=== PATIENT | male | born 1950 | race Caucasian/White ===

== ENCOUNTER 2017-10-17 13:45 | Inpatient (IN) | payer MEDICARE, MEDICAID, OTHER ==
[2017-10-17] MEDS: ONDANSETRON 4 MG INJ IV (17:31)
[2017-10-17] MEDS: morphine 4 MG/ML VIAL IV (17:31)
[2017-10-17] MEDS: METHOCARBAMOL 750 MG TAB PO (17:39)
[2017-10-17 17:41] LABS: ADD MAN DIFF? NO
[2017-10-17 17:43] LABS: BASOPHIL # 0.1 10^3/ul (0.0-0.1); BASOPHILS % 0.6 % (0.0-2.0); EOSINOPHILS # 0.1 10^3/ul (0.0-0.5); EOSINOPHILS % 1.4 % (0.0-7.0); HEMATOCRIT 30.3 % (42.0-52.0); HEMOGLOBIN 10.1 g/dl (14.0-18.0); LYMPHOCYTES # 1.9 10^3/ul (0.8-2.9); LYMPHOCYTES % 18.9 % (15.0-51.0); MEAN CORPUSCULAR HEMOGLOBIN 29.3 pg (29.0-33.0); MEAN CORPUSCULAR HGB CONC 33.3 g/dl (32.0-37.0); MEAN CORPUSCULAR VOLUME 87.8 fl (82.0-101.0); MEAN PLATELET VOLUME 10.2 fl (7.4-10.4); MONOCYTE # 0.7 10^3/ul (0.3-0.9); MONOCYTES % 7.5 % (0.0-11.0); NEUTROPHIL # 7.1 10^3/ul (1.6-7.5); NEUTROPHILS % 71.3 % (39.0-77.0); PLATELET COUNT 282 10^3/UL (140-415); RED BLOOD COUNT 3.45 10^6/ul (4.70-6.10); RED CELL DISTRIBUTION WIDTH 13.5 % (11.5-14.5)
[2017-10-17 17:43] LABS: WHITE BLOOD COUNT 9.9 10^3/ul (4.8-10.8)
[2017-10-17 18:00] LABS: ANION GAP 14 (8-16); BLOOD UREA NITROGEN 30 mg/dl (7-20); CALCIUM 8.3 mg/dl (8.4-10.2); CARBON DIOXIDE 23 mmol/L (21-31); CHLORIDE 113 mmol/L (97-110); CREATININE 2.14 mg/dl (0.61-1.24); GLUCOSE 120 mg/dl (70-220); SODIUM 146 mmol/L (135-144)
[2017-10-17] MEDS ORDERED: LABETALOL HCL 20MG INJ IV ×3 (18:00→23:30)
[2017-10-17 18:13] LABS: B-TYPE NATRIURETIC PEPTIDE 5330 PG/ML (0-125); TROPONIN-I < 0.012 ng/ml (0.00-0.12)
[2017-10-17] MEDS: LABETALOL HCL 20MG INJ IV ×2 (18:25→23:42)
[2017-10-17 19:05] LABS: ADD UMIC YES; UR ASCORBIC ACID NEGATIVE (NEGATIVE); UR BILIRUBIN (Dip) NEGATIVE (NEGATIVE); UR BLOOD (Dip) 1+ mg/dL (NEGATIVE); UR CLARITY CLEAR (CLEAR); UR COLOR YELLOW (YELLOW); UR GLUCOSE (Dip) 2+ mg/dL (NEGATIVE); UR KETONES (Dip) NEGATIVE (NEGATIVE); UR LEUKOCYTE ESTERASE (Dip) NEGATIVE Leu/ul (NEGATIVE); UR NITRITE (Dip) NEGATIVE (NEGATIVE); UR RBC 3 /HPF (0-5); UR SPECIFIC GRAVITY (Dip) 1.018 (1.003-1.030); UR TOTAL PROTEIN (Dip) 3+ mg/dl (NEGATIVE); UR UROBILINOGEN (Dip) NEGATIVE (NEGATIVE); UR WBC 2 /HPF (0-5)
[2017-10-17] MEDS ORDERED: MAGNESIUM HYDROXIDE 30ML CUP PO (23:30)
[2017-10-17] MEDS ORDERED: ONDANSETRON 4 MG INJ IV (23:30)
[2017-10-17] MEDS ORDERED: DOCUSATE SODIUM 100 MG CAP PO (23:30)
[2017-10-17] MEDS ORDERED: NACL 0.9% 3 ML SYG IV (23:30)
[2017-10-17] MEDS ORDERED: GLUCOSE GEL 15 GRAM TUBE BUCCAL (23:45)
[2017-10-17] MEDS ORDERED: GLUCOSE GEL 15 GRAM TUBE PO ×2 (23:45)
[2017-10-17] MEDS ORDERED: GLUCAGON 1 MG INJ IM (23:45)
[2017-10-17] MEDS ORDERED: DEXTROSE 50% 50 ML SYRINGE IV ×2 (23:45)
[2017-10-18] MEDS ORDERED: VANCOMYCIN IV PER PHARMACY XX
[2017-10-18] MEDS ORDERED: ONDANSETRON 4 MG INJ IV
[2017-10-18] MEDS ORDERED: ACETAMINOPHEN 325 MG TAB PO
[2017-10-18] MEDS: CEFTRIAXONE 2 GM/50 ML (PMX) 50 ML IVPB (00:06)
[2017-10-18] MEDS: SOD CHLORIDE 0.9% 1,000 ML IV ×2 (00:06→13:45)
[2017-10-18] MEDS: VANCOMYCIN 1 GM (PMX) 250 ML IVPB (00:53)
[2017-10-18] MEDS: hydrALAzine 20 MG INJ IV ×4 (00:59→23:43)
[2017-10-18] MEDS: ACCU-CHEK XX (01:45)
[2017-10-18] MEDS: morphine 2 MG INJ IV (03:18)
[2017-10-18] MEDS: PANTOPRAZOLE (EC) 40 MG TAB PO (05:51)
[2017-10-18] MEDS: PIPER-TAZO 2.25 GM (PMX) 50 ML IVPB ×3 (05:55→21:56)
[2017-10-18 06:38] LABS: ADD MAN DIFF? NO
[2017-10-18 06:42] LABS: BASOPHIL # 0.1 10^3/ul (0.0-0.1); BASOPHILS % 0.6 % (0.0-2.0); EOSINOPHILS # 0.1 10^3/ul (0.0-0.5); EOSINOPHILS % 1.3 % (0.0-7.0); HEMATOCRIT 28.9 % (42.0-52.0); HEMOGLOBIN 9.6 g/dl (14.0-18.0); LYMPHOCYTES # 2.1 10^3/ul (0.8-2.9); LYMPHOCYTES % 18.9 % (15.0-51.0); MEAN CORPUSCULAR HEMOGLOBIN 29.1 pg (29.0-33.0); MEAN CORPUSCULAR HGB CONC 33.2 g/dl (32.0-37.0); MEAN CORPUSCULAR VOLUME 87.6 fl (82.0-101.0); MEAN PLATELET VOLUME 10.3 fl (7.4-10.4); MONOCYTE # 0.9 10^3/ul (0.3-0.9); MONOCYTES % 8.2 % (0.0-11.0); NEUTROPHIL # 7.7 10^3/ul (1.6-7.5); NEUTROPHILS % 70.8 % (39.0-77.0); PLATELET COUNT 269 10^3/UL (140-415); RED CELL DISTRIBUTION WIDTH 13.4 % (11.5-14.5)
[2017-10-18 06:42] LABS: WHITE BLOOD COUNT 10.9 10^3/ul (4.8-10.8)
[2017-10-18] MEDS: LABETALOL HCL 20MG INJ IV ×2 (06:52→07:48)
[2017-10-18 07:53] LABS: ALANINE AMINOTRANSFERASE 30 IU/L (13-69); ALBUMIN 2.6 g/dl (3.3-4.9); ALBUMIN/GLOBULIN RATIO 0.78; ALKALINE PHOSPHATASE 103 IU/L (42-121); ANION GAP 11 (8-16); ASPARTATE AMINO TRANSFERASE 21 IU/L (15-46); BLOOD UREA NITROGEN 28 mg/dl (7-20); CARBON DIOXIDE 23 mmol/L (21-31); CHLORIDE 116 mmol/L (97-110); CREATININE 1.98 mg/dl (0.61-1.24); GLUCOSE 139 mg/dl (70-220); POTASSIUM 3.6 mmol/L (3.5-5.1); SODIUM 146 mmol/L (135-144); TOTAL PROTEIN 5.9 g/dl (6.1-8.1)
[2017-10-18] MEDS: INSULIN ASPART [NOVOLOG] 3 ML PEN SC ×4 (07:54→21:03)
[2017-10-18] MEDS: GABAPENTIN 100 MG CAP PO ×2 (08:24→13:20)
[2017-10-18] MEDS: ASPIRIN (EC) 81 MG TAB PO (08:25)
[2017-10-18] MEDS: AMLODIPINE 5 MG TAB PO (08:25)
[2017-10-18] MEDS: GEMFIBROZIL 600 MG TAB PO ×2 (08:25→21:01)
[2017-10-18 09:41] LABS: HEMOGLOBIN A1C 7.8 % (0-5.9)
[2017-10-18] MEDS: VANCOMYCIN 1.25 GM in SOD CHLORIDE 0.9% 250 ML IVPB (13:25)
[2017-10-18] MEDS: METOPROLOL 25 MG TAB PO (21:01)
[2017-10-18] MEDS: GABAPENTIN 400 MG CAP PO (21:15)
[2017-10-19] MEDS: ACCU-CHEK XX (02:11)
[2017-10-19] MEDS: PANTOPRAZOLE (EC) 40 MG TAB PO (05:44)
[2017-10-19] MEDS: PIPER-TAZO 2.25 GM (PMX) 50 ML IVPB ×3 (05:44→21:48)
[2017-10-19] MEDS: ACETAMINOPHEN 325 MG TAB PO (05:59)
[2017-10-19] MEDS: INSULIN ASPART [NOVOLOG] 3 ML PEN SC ×4 (07:59→20:37)
[2017-10-19 08:03] LABS: ADD MAN DIFF? NO
[2017-10-19 08:11] LABS: BASOPHIL # 0.1 10^3/ul (0.0-0.1); BASOPHILS % 0.6 % (0.0-2.0); EOSINOPHILS # 0.1 10^3/ul (0.0-0.5); EOSINOPHILS % 0.9 % (0.0-7.0); HEMATOCRIT 24.9 % (42.0-52.0); HEMOGLOBIN 8.3 g/dl (14.0-18.0); LYMPHOCYTES # 1.2 10^3/ul (0.8-2.9); LYMPHOCYTES % 11.2 % (15.0-51.0); MEAN CORPUSCULAR HEMOGLOBIN 29.2 pg (29.0-33.0); MEAN CORPUSCULAR HGB CONC 33.3 g/dl (32.0-37.0); MEAN CORPUSCULAR VOLUME 87.7 fl (82.0-101.0); MEAN PLATELET VOLUME 10.5 fl (7.4-10.4); MONOCYTES % 9.4 % (0.0-11.0); NEUTROPHIL # 8.2 10^3/ul (1.6-7.5); NEUTROPHILS % 77.6 % (39.0-77.0); PLATELET COUNT 248 10^3/UL (140-415); RED BLOOD COUNT 2.84 10^6/ul (4.70-6.10); RED CELL DISTRIBUTION WIDTH 13.5 % (11.5-14.5)
[2017-10-19 08:11] LABS: WHITE BLOOD COUNT 10.6 10^3/ul (4.8-10.8)
[2017-10-19] MEDS: GABAPENTIN 400 MG CAP PO ×3 (08:15→20:28)
[2017-10-19] MEDS: AMLODIPINE 5 MG TAB PO (08:16)
[2017-10-19] MEDS: GEMFIBROZIL 600 MG TAB PO ×2 (08:16→20:29)
[2017-10-19] MEDS: ASPIRIN (EC) 81 MG TAB PO (08:16)
[2017-10-19] MEDS: METOPROLOL 25 MG TAB PO (08:16)
[2017-10-19 08:30] LABS: PHOSPHORUS 4.5 mg/dl (2.5-4.9)
[2017-10-19 08:33] LABS: ANION GAP 14 (8-16); BLOOD UREA NITROGEN 29 mg/dl (7-20); CALCIUM 7.7 mg/dl (8.4-10.2); CARBON DIOXIDE 19 mmol/L (21-31); CHLORIDE 110 mmol/L (97-110); CREATININE 2.38 mg/dl (0.61-1.24); GLUCOSE 147 mg/dl (70-220); POTASSIUM 3.7 mmol/L (3.5-5.1); SODIUM 139 mmol/L (135-144)
[2017-10-19] MEDS: HEPARIN 5,000 UNIT/0.5 ML VIAL SC ×2 (09:50→20:37)
[2017-10-19] MEDS: TAMSULOSIN (SR) 0.4 MG CAP PO (20:28)
[2017-10-19] MEDS: hydrALAzine 20 MG INJ IV (20:29)
[2017-10-19] MEDS: METOPROLOL 50 MG TAB PO (20:29)
[2017-10-20] MEDS: ACCU-CHEK XX (02:16)
[2017-10-20] MEDS: PANTOPRAZOLE (EC) 40 MG TAB PO (05:41)
[2017-10-20] MEDS: PIPER-TAZO 2.25 GM (PMX) 50 ML IVPB ×3 (05:41→21:49)
[2017-10-20] MEDS: INSULIN ASPART [NOVOLOG] 3 ML PEN SC ×4 (08:21→20:12)
[2017-10-20 08:48] LABS: ADD MAN DIFF? NO
[2017-10-20 08:49] LABS: BASOPHIL # 0.1 10^3/ul (0.0-0.1); BASOPHILS % 0.7 % (0.0-2.0); EOSINOPHILS # 0.1 10^3/ul (0.0-0.5); EOSINOPHILS % 1.5 % (0.0-7.0); HEMATOCRIT 24.7 % (42.0-52.0); HEMOGLOBIN 8.2 g/dl (14.0-18.0); LYMPHOCYTES # 1.5 10^3/ul (0.8-2.9); LYMPHOCYTES % 17.1 % (15.0-51.0); MEAN CORPUSCULAR HEMOGLOBIN 29.4 pg (29.0-33.0); MEAN CORPUSCULAR HGB CONC 33.2 g/dl (32.0-37.0); MEAN CORPUSCULAR VOLUME 88.5 fl (82.0-101.0); MEAN PLATELET VOLUME 10.1 fl (7.4-10.4); MONOCYTE # 0.8 10^3/ul (0.3-0.9); MONOCYTES % 9.1 % (0.0-11.0); NEUTROPHIL # 6.2 10^3/ul (1.6-7.5); NEUTROPHILS % 71.3 % (39.0-77.0); PLATELET COUNT 260 10^3/UL (140-415); RED BLOOD COUNT 2.79 10^6/ul (4.70-6.10); RED CELL DISTRIBUTION WIDTH 13.4 % (11.5-14.5)
[2017-10-20 08:49] LABS: WHITE BLOOD COUNT 8.8 10^3/ul (4.8-10.8)
[2017-10-20] MEDS: GEMFIBROZIL 600 MG TAB PO ×2 (08:59→20:02)
[2017-10-20] MEDS: ASPIRIN (EC) 81 MG TAB PO (08:59)
[2017-10-20] MEDS: AMLODIPINE 5 MG TAB PO (09:00)
[2017-10-20] MEDS: GABAPENTIN 400 MG CAP PO ×3 (09:00→20:02)
[2017-10-20] MEDS: METOPROLOL 50 MG TAB PO ×2 (09:00→20:03)
[2017-10-20] MEDS: HEPARIN 5,000 UNIT/0.5 ML VIAL SC ×2 (09:04→20:14)
[2017-10-20 09:19] LABS: MAGNESIUM 2.3 mg/dl (1.7-2.5)
[2017-10-20 09:22] LABS: ALANINE AMINOTRANSFERASE 37 IU/L (13-69); ALBUMIN 2.4 g/dl (3.3-4.9); ALBUMIN/GLOBULIN RATIO 0.75; ALKALINE PHOSPHATASE 107 IU/L (42-121); ANION GAP 11 (8-16); ASPARTATE AMINO TRANSFERASE 21 IU/L (15-46); BILIRUBIN,INDIRECT 0.2 mg/dl (0-1.1); BILIRUBIN,TOTAL 0.2 mg/dl (0.2-1.3); BLOOD UREA NITROGEN 36 mg/dl (7-20); CALCIUM 7.9 mg/dl (8.4-10.2); CARBON DIOXIDE 20 mmol/L (21-31); CHLORIDE 112 mmol/L (97-110); CREATININE 2.82 mg/dl (0.61-1.24); GLUCOSE 170 mg/dl (70-220); POTASSIUM 3.6 mmol/L (3.5-5.1); SODIUM 139 mmol/L (135-144); TOTAL PROTEIN 5.6 g/dl (6.1-8.1)
[2017-10-20 09:59] LABS: AMMONIA < 9 umol/l (9-30)
[2017-10-20] MEDS ORDERED: VANCOMYCIN IV PER PHARMACY XX (14:00)
[2017-10-20] MEDS: SOD CHLORIDE 0.9% 1,000 ML IV (15:00)
[2017-10-20 15:26] LABS: C-REACTIVE PROTEIN 13.5 mg/dl (0.0-0.9)
[2017-10-20] MEDS: VANCOMYCIN 1.75 GM in D5W 500 ML IVPB (15:44)
[2017-10-20 16:01] LABS: ERYTHROCYTE SEDIMENTATION RATE 122 mm/Hr (0-20)
[2017-10-20] MEDS: TAMSULOSIN (SR) 0.4 MG CAP PO (20:03)
[2017-10-20] MEDS: hydrALAzine 20 MG INJ IV (21:48)
[2017-10-20] MEDS: SOD CHLORIDE 0.9% 500 ML IV (22:15)
[2017-10-21] MEDS: ACCU-CHEK XX (02:00)
[2017-10-21] MEDS: PIPER-TAZO 2.25 GM (PMX) 50 ML IVPB ×2 (05:14→14:00)
[2017-10-21] MEDS: PANTOPRAZOLE (EC) 40 MG TAB PO (05:14)
[2017-10-21] MEDS: morphine LIQ (10 MG/5 ML) CUP PO (05:15)
[2017-10-21] MEDS: SOD CHLORIDE 0.9% 500 ML IV (05:15)
[2017-10-21 07:48] LABS: ADD MAN DIFF? NO
[2017-10-21 07:52] LABS: WHITE BLOOD COUNT 7.5 10^3/ul (4.8-10.8)
[2017-10-21 07:52] LABS: BASOPHILS % 0.5 % (0.0-2.0); EOSINOPHILS # 0.2 10^3/ul (0.0-0.5); EOSINOPHILS % 2.5 % (0.0-7.0); HEMATOCRIT 25.4 % (42.0-52.0); HEMOGLOBIN 8.4 g/dl (14.0-18.0); LYMPHOCYTES # 1.4 10^3/ul (0.8-2.9); LYMPHOCYTES % 18.4 % (15.0-51.0); MEAN CORPUSCULAR HEMOGLOBIN 29.5 pg (29.0-33.0); MEAN CORPUSCULAR HGB CONC 33.1 g/dl (32.0-37.0); MEAN CORPUSCULAR VOLUME 89.1 fl (82.0-101.0); MEAN PLATELET VOLUME 10.5 fl (7.4-10.4); MONOCYTE # 0.8 10^3/ul (0.3-0.9); MONOCYTES % 10.4 % (0.0-11.0); NEUTROPHIL # 5.1 10^3/ul (1.6-7.5); NEUTROPHILS % 67.9 % (39.0-77.0); PLATELET COUNT 283 10^3/UL (140-415); RED BLOOD COUNT 2.85 10^6/ul (4.70-6.10); RED CELL DISTRIBUTION WIDTH 13.2 % (11.5-14.5)
[2017-10-21 08:12] LABS: ALANINE AMINOTRANSFERASE 34 IU/L (13-69); ALBUMIN 2.4 g/dl (3.3-4.9); ALBUMIN/GLOBULIN RATIO 0.68; ALKALINE PHOSPHATASE 126 IU/L (42-121); ANION GAP 13 (8-16); ASPARTATE AMINO TRANSFERASE 18 IU/L (15-46); BILIRUBIN,INDIRECT 0.2 mg/dl (0-1.1); BILIRUBIN,TOTAL 0.2 mg/dl (0.2-1.3); BLOOD UREA NITROGEN 37 mg/dl (7-20); CALCIUM 7.9 mg/dl (8.4-10.2); CARBON DIOXIDE 19 mmol/L (21-31); CHLORIDE 111 mmol/L (97-110); CREATININE 2.62 mg/dl (0.61-1.24); GLUCOSE 180 mg/dl (70-220); POTASSIUM 3.7 mmol/L (3.5-5.1); SODIUM 139 mmol/L (135-144); TOTAL PROTEIN 5.9 g/dl (6.1-8.1)
[2017-10-21 08:16] LABS: MAGNESIUM 2.3 mg/dl (1.7-2.5)
[2017-10-21 08:16] LABS: PHOSPHORUS 5.2 mg/dl (2.5-4.9)
[2017-10-21] MEDS: INSULIN ASPART [NOVOLOG] 3 ML PEN SC ×3 (08:19→18:21)
[2017-10-21] MEDS: ASPIRIN (EC) 81 MG TAB PO (08:32)
[2017-10-21] MEDS: METOPROLOL 50 MG TAB PO ×2 (08:33→18:18)
[2017-10-21] MEDS: GEMFIBROZIL 600 MG TAB PO (08:33)
[2017-10-21] MEDS: AMLODIPINE 5 MG TAB PO ×2 (08:33→13:49)
[2017-10-21] MEDS: GABAPENTIN 400 MG CAP PO ×2 (08:33→13:49)
[2017-10-21] MEDS: HEPARIN 5,000 UNIT/0.5 ML VIAL SC (08:40)
[2017-10-21 09:51] LABS: ADD UMIC YES; UR ASCORBIC ACID NEGATIVE (NEGATIVE); UR BILIRUBIN (Dip) NEGATIVE (NEGATIVE); UR BLOOD (Dip) 1+ mg/dL (NEGATIVE); UR CLARITY CLEAR (CLEAR); UR COLOR STRAW (YELLOW); UR GLUCOSE (Dip) 3+ mg/dL (NEGATIVE); UR KETONES (Dip) NEGATIVE (NEGATIVE); UR LEUKOCYTE ESTERASE (Dip) NEGATIVE Leu/ul (NEGATIVE); UR NITRITE (Dip) NEGATIVE (NEGATIVE); UR RBC 3 /HPF (0-5); UR SPECIFIC GRAVITY (Dip) 1.012 (1.003-1.030); UR TOTAL PROTEIN (Dip) 3+ mg/dl (NEGATIVE); UR UROBILINOGEN (Dip) NEGATIVE (NEGATIVE); UR WBC 2 /HPF (0-5)
[2017-10-21 10:20] LABS: CREATININE,URINE RANDOM 60.61 mg/dl (20-370)
[2017-10-21 10:20] LABS: SODIUM,URINE RANDOM 50 mmol/L (30-90)
[2017-10-22] MEDS ORDERED: VANCOMYCIN 1.25 GM in SOD CHLORIDE 0.9% 250 ML IVPB (14:00)
[2017-10-22 15:58] LABS: CREATININE, RANDOM URINE 75 mg/dL (20-370); MICROALBUMIN 259.9 mg/dL; MICROALBUMIN/CREATININE RATIO 3465 (<30)
== END 2017-10-21 19:39 | disposition home health service (06) | DRG 304 ==
LOC: TEL 23:48 → E/R 13:45
DX: I16.1 Hypertensive emergency (principal); G92 Toxic encephalopathy; G06.0 Intracranial abscess and granuloma; N17.9 Acute kidney failure, unspecified; L03.113 Cellulitis of right upper limb; E11.22 Type 2 diabetes mellitus with diabetic chronic kidney disease; I12.9 Hypertensive chronic kidney disease with stage 1 through stage 4 chronic kidney disease, or unspecified chronic kidney disease; D64.9 Anemia, unspecified; E78.5 Hyperlipidemia, unspecified; N18.9 Chronic kidney disease, unspecified; M25.562 Pain in left knee; M51.36 Other intervertebral disc degeneration, lumbar region; N40.1 Benign prostatic hyperplasia with lower urinary tract symptoms; R33.8 Other retention of urine; R60.0 Localized edema; R25.1 Tremor, unspecified; R26.81 Unsteadiness on feet; R29.6 Repeated falls; R25.8 Other abnormal involuntary movements; Z91.81 History of falling; Z98.2 Presence of cerebrospinal fluid drainage device; Z79.82 Long term (current) use of aspirin; Z79.4 Long term (current) use of insulin
CPT/HCPCS: 36415; 70450; 71045; 72131; 73510; 73562; 76775; 80048; 80053; 81001; 81003; 82043; 82140; 82962; 83036; 83735; 83880; 84100; 84155; 84300; 84484; 85025; 85651; 86140; 87040; 87081; 93005; 93970; 96374; 96375; 96376; 97163; 99291-25